=== PATIENT | female | born 1995 | race Caucasian/White ===

== ENCOUNTER → 2016-07-01 | Outpatient (CLI) | payer MEDICAID ==
[~2016-07-01] MED LIST: ANAPROX DS550 MG PO; BIRTH CONTROL PO; CLARITIN10 MG PO; IBU800 MG PO; Motrin,Rufen800 MG PO; PRENATAL1 TA3 PO; ZYRTEC10 M3 PO
== END | disposition home or self-care (01) ==
LOC: US 10:30
DX: Z34.81 Encounter for supervision of other normal pregnancy, first trimester (principal); Z3A.00 Weeks of gestation of pregnancy not specified

== ENCOUNTER 2016-09-10 13:10 | Emergency (ER) | payer MEDICAID ==
[~2016-09-10] VITALS: Ht 154.9 cm; Wt 99.8 kg
== END 2016-09-10 15:22 | disposition left against medical advice (07) ==
LOC: ED 13:10
DX: O46.92 Antepartum hemorrhage, unspecified, second trimester (principal); F17.200 Nicotine dependence, unspecified, uncomplicated; Z88.0 Allergy status to penicillin; Z88.1 Allergy status to other antibiotic agents; Z3A.23 23 weeks gestation of pregnancy

== ENCOUNTER → 2016-11-03 | Emergency (ER) | payer OTHER ==
[~2016-11-03] MED LIST changes: +CEPHALEXIN500 M1 PO; +ZANTAC 7575 M1 PO
[2016-11-03 09:50] LABS: BILIRUBIN NEGATIVE (NEGATIVE); BLOOD NEGATIVE (NEGATIVE); CLARITY SL CLOUDY (CLEAR); COLOR YELLOW (YELLOW); GLUCOSE NEGATIVE (NEGATIVE); KETONE NEGATIVE (NEGATIVE); LEUKO ESTERASE 3+ (NEGATIVE); NITRITE NEGATIVE (NEGATIVE); PROTEIN TRACE (NEGATIVE); SPECIFIC GRAVITY 1.025 (1.005-1.030); UROBILINOGEN 0.2 E.U./dl (0.2-1.0)
[2016-11-03 09:58] LABS: BACTERIA 3+; EPITHELIAL CELLS 21-25; URINE REFLEX COMMENT YES (NO); WBC 31-40 wbc/hpf (0-5)
== END ==
LOC: ED 08:48
PROVIDERS: Emergency Medicine; Student in an Organized Health Care Education/Training Program
DX: O23.591 Infection of other part of genital tract in pregnancy, first trimester (principal); N76.6 Ulceration of vulva; F17.200 Nicotine dependence, unspecified, uncomplicated; Z88.0 Allergy status to penicillin; Z88.1 Allergy status to other antibiotic agents; Z79.899 Other long term (current) drug therapy; Z3A.01 Less than 8 weeks gestation of pregnancy

== ENCOUNTER 2016-11-05 13:34 | Emergency (ER) | payer OTHER ==
[~2016-11-05] VITALS: Ht 154.9 cm; Wt 88.5 kg
[~2016-11-05 13:34] MED LIST changes: -CEPHALEXIN500 M1 PO
[2016-11-05] MEDS ORDERED: CEPHALEXIN500 M1 PO (14:44)
== END 2016-11-05 14:27 | disposition home or self-care (01) ==
LOC: ED 13:34
DX: O26.892 Other specified pregnancy related conditions, second trimester (principal); L03.311 Cellulitis of abdominal wall; Z88.0 Allergy status to penicillin; Z88.1 Allergy status to other antibiotic agents; Z79.899 Other long term (current) drug therapy; Z3A.25 25 weeks gestation of pregnancy

== ENCOUNTER 2017-02-04 17:49 | Emergency (ER) | payer OTHER ==
[~2017-02-04] VITALS: Wt 91.6 kg
[~2017-02-04 17:49] MED LIST changes: +CEPHALEXIN500 M1 PO
[2017-02-04 18:51] LABS: BILIRUBIN NEGATIVE (NEGATIVE); BLOOD NEGATIVE (NEGATIVE); CLARITY CLEAR (CLEAR); COLOR YELLOW (YELLOW); GLUCOSE NEGATIVE (NEGATIVE); KETONE NEGATIVE (NEGATIVE); LEUKO ESTERASE 2+ (NEGATIVE); NITRITE NEGATIVE (NEGATIVE); SPECIFIC GRAVITY <= 1.005 (1.005-1.030); UROBILINOGEN 0.2 E.U./dl (0.2-1.0)
[2017-02-04 19:03] LABS: EPITHELIAL CELLS 20-25; WBC 31-40 wbc/hpf (0-5)
[2017-02-04 19:04] LABS: BACTERIA 2+
== END 2017-02-04 20:32 | disposition short-term general hospital (02) ==
LOC: ED 17:49
PROVIDERS: Emergency Medicine
DX: O26.893 Other specified pregnancy related conditions, third trimester (principal); R10.30 Lower abdominal pain, unspecified; M54.5 Low back pain; Z88.0 Allergy status to penicillin; Z88.1 Allergy status to other antibiotic agents; Z79.899 Other long term (current) drug therapy; Z3A.39 39 weeks gestation of pregnancy

== ENCOUNTER 2017-03-17 10:55 | Emergency (ER) | payer OTHER ==
[~2017-03-17] VITALS: Ht 154.9 cm; Wt 81.6 kg
[2017-03-17 11:24] LABS: BASO # 0.1 10*3/uL (0.0-0.1); BASO % 0.4 % (0.0-1.0); EOS # 0.4 10*3/uL (0.0-0.4); EOS % 3.7 % (1.0-4.0); HEMATOCRIT 34.9 % (37.0-47.0); LYMPH % 16.3 % (27.0-41.0); MEAN CELL VOLUME 77.2 fl (81.0-99.0); MEAN CORPUSCULAR HGB 24.3 pg (27.0-31.0); MEAN CORPUSCULAR HGB CONC 31.5 g/dl (33.0-37.0); MEAN PLATELET VOLUME 10.4 fl (9.6-12.3); MONO # 0.8 10*3/uL (0.1-1.0); MONO % 6.7 % (3.0-9.0); NEUT # 8.7 10*3/uL (2.3-7.9); NEUT % 72.7 % (47.0-73.0); PLATELET COUNT AUTOMATED 501 10*3/uL (130-400); RED BLOOD COUNT 4.52 10*6/uL (4.10-5.10); RED CELL DISTRI WIDTH 15.3 % (0-14.5)
[2017-03-17 11:31] LABS: BILIRUBIN 1+ (NEGATIVE); BLOOD NEGATIVE (NEGATIVE); CLARITY SL CLOUDY (CLEAR); COLOR YELLOW (YELLOW); GLUCOSE NEGATIVE (NEGATIVE); KETONE NEGATIVE (NEGATIVE); LEUKO ESTERASE NEGATIVE (NEGATIVE); NITRITE NEGATIVE (NEGATIVE); PH 7.5 (5.0-9.0); UROBILINOGEN 0.2 E.U./dl (0.2-1.0)
[2017-03-17 11:45] LABS: ALBUMIN 3.4 gm/dl (3.1-4.5); ALKALINE PHOSPHATASE 182 U/L (45-117); BUN 7 mg/dl (7-24); CHLORIDE 110 mmol/L (98-107); CREATININE 0.97 mg/dL (0.55-1.02); LIPASE 180 U/L (73-393); POTASSIUM 4.1 mmol/L (3.5-5.1); SGOT/AST 133 IU/L (3-35); SGPT/ALT 72 U/L (12-78); SODIUM 140 mmol/L (136-145); TOTAL PROTEIN 7.6 gm/dL (6.4-8.2)
[2017-03-17 11:46] LABS: BACTERIA TRACE; EPITHELIAL CELLS 16-20; MUCOUS 2+; WBC 0-2 wbc/hpf (0-5)
[2017-03-17] MEDS ORDERED: CIPRO250 MG PO (13:29)
[2017-03-17] MEDS ORDERED: ULTRAM50 MG PO (13:29)
== END 2017-03-17 14:09 | disposition home or self-care (01) ==
LOC: ED 10:55
PROVIDERS: Nurse Practitioner Family
DX: K80.50 Calculus of bile duct without cholangitis or cholecystitis without obstruction (principal); F17.200 Nicotine dependence, unspecified, uncomplicated; Z88.0 Allergy status to penicillin; Z88.1 Allergy status to other antibiotic agents; Z79.899 Other long term (current) drug therapy

== ENCOUNTER → 2017-04-03 | Day surgery (SDC) | payer OTHER ==
[2017-04-01 11:45] LABS: BILIRUBIN NEGATIVE (NEGATIVE); BLOOD 3+ (NEGATIVE); CLARITY CLEAR (CLEAR); COLOR YELLOW (YELLOW); GLUCOSE NEGATIVE (NEGATIVE); KETONE NEGATIVE (NEGATIVE); LEUKO ESTERASE NEGATIVE (NEGATIVE); NITRITE NEGATIVE (NEGATIVE); PH 6.5 (5.0-9.0); SPECIFIC GRAVITY <= 1.005 (1.005-1.030); UROBILINOGEN 0.2 E.U./dl (0.2-1.0)
[2017-04-01 11:51] LABS: BASO # 0.1 10*3/uL (0.0-0.1); BASO % 0.6 % (0.0-1.0); EOS # 0.7 10*3/uL (0.0-0.4); EOS % 7.2 % (1.0-4.0); HEMATOCRIT 34.1 % (37.0-47.0); HEMOGLOBIN 10.4 g/dl (12.0-16.0); LYMPH # 3.4 10*3/uL (1.3-4.4); MEAN CELL VOLUME 78.9 fl (81.0-99.0); MEAN CORPUSCULAR HGB 24.1 pg (27.0-31.0); MEAN CORPUSCULAR HGB CONC 30.5 g/dl (33.0-37.0); MEAN PLATELET VOLUME 10.3 fl (9.6-12.3); MONO # 0.5 10*3/uL (0.1-1.0); MONO % 5.7 % (3.0-9.0); NEUT # 4.5 10*3/uL (2.3-7.9); NEUT % 49.3 % (47.0-73.0); PLATELET COUNT AUTOMATED 509 10*3/uL (130-400); RED BLOOD COUNT 4.32 10*6/uL (4.10-5.10); RED CELL DISTRI WIDTH 16.7 % (0-14.5); WHITE BLOOD COUNT 9.1 10*3/uL (4.8-10.8)
[2017-04-01 12:20] LABS: ALBUMIN 3.3 gm/dl (3.1-4.5); ALKALINE PHOSPHATASE 189 U/L (45-117); BILIRUBIN, DIRECT < 0.1 mg/dL (0.0-0.2); BUN 6 mg/dl (7-24); CHLORIDE 107 mmol/L (98-107); CREATININE 0.85 mg/dL (0.55-1.02); POTASSIUM 3.9 mmol/L (3.5-5.1); SGOT/AST 20 IU/L (3-35); SGPT/ALT 74 U/L (12-78); SODIUM 140 mmol/L (136-145); TOTAL PROTEIN 7.6 gm/dL (6.4-8.2)
[2017-04-03] VITALS (8 sets, daily range): BP systolic 116–128; BP diastolic 54–71
[~2017-04-03] MED LIST changes: +CIPRO250 MG PO; +PERCOCET 5-3251 EACH PO; +ULTRAM50 MG PO
--- NOTE | ~2017-04-03 | O ---
[place], [place] OPERATIVE NOTE NAME: MINH VARGAS MERGED WITH [facility] #: [id number] UNIT #: [id number] ROOM: DOCTOR: JORDY JARVIS MD BIRTHDATE: [birth year] DOS: 04/03/2017 PREOPERATIVE DIAGNOSIS: Symptomatic gallstones. POSTOPERATIVE DIAGNOSIS: Symptomatic gallstones. PROCEDURE: Laparoscopic cholecystectomy. SURGEON: Jordy Jarvis MD OUTPATIENT PSYCHIATRIST: YULISA. ANESTHESIA: GET. INDICATIONS: This is a 21-year-old lady with a history of symptomatic gallstones, who is here for the above-mentioned procedure. The procedure and its complications were explained to the patient in detail preoperatively. Complications that were discussed included but were not limited to bleeding, infection, hematoma/seroma/abscess formation, biloma formation, incisional hernia, prolonged postoperative pain, and damage to underlying vital structures. She agreed to proceed. DESCRIPTION OF PROCEDURE: After identifying the patient, the patient was brought to the operating suite and laid in the supine position. After induction of general anesthesia, timeout procedure was called and the parts were then painted and draped in the usual sterile fashion. An incision was made below the umbilicus in a transverse fashion. The skin and the subcutaneous tissue were incised in the line of the incision. The fascia was incised vertically and 2 stay sutures with 0 Vicryl were taken on either site. The peritoneum was opened and a 12 mm Amado port was introduced into the peritoneal cavity and a pneumoperitoneum was created. Under direct vision, an epigastric incision of 10 mm and two 5 mm incisions were made in the right upper quadrant and appropriate size ports were introduced. The gallbladder was retracted superiorly and laterally. The cystic duct and the cystic artery were carefully dissected until the critical view of safety was obtained. Thereafter, each of these structures were clipped 3 times and cut between the first and the second clip. The gallbladder was then removed from the bed of the gallbladder and sent for histopathological diagnosis after being placed in an EndoCatch bag. Hemostasis was achieved in the liver bed and saline was used for irrigation and after hemostasis was confirmed, the right upper quadrant and the epigastric ports were removed and there was no bleeding seen. The umbilical port was also removed and the 2 stay sutures were tied together and an additional 0 Vicryl stitch was taken for the closure of the fascia. Thereafter, 1% lidocaine was injected in all the skin edges and they were then approximated with the help of 4-0 Vicryl in a subcuticular fashion. Dressings were placed. The patient tolerated the procedure well. The patient was extubated uneventfully and brought back to the recovery room in stable fashion. There were no complications. Dr. Jordy Jarvis, the attending surgeon, was present throughout the operating case. [place], [place] OPERATIVE NOTE NAME: MINH VARGAS UNIT #: [id number] ROOM: DOCTOR: JORDY JARVIS MD BIRTHDATE: [birth year] Jordy Jarvis MD CM:OPRECORD:OPERATIVE NOTE 1003 1022 JORDY JARVIS MD 04/03/17 1020 interface
== END | disposition home or self-care (01) ==
LOC: SDC 03-27 08:45
PROVIDERS: Surgery
DX: K80.10 Calculus of gallbladder with chronic cholecystitis without obstruction (principal); F17.210 Nicotine dependence, cigarettes, uncomplicated; Z88.0 Allergy status to penicillin; Z88.1 Allergy status to other antibiotic agents; Z98.890 Other specified postprocedural states

== ENCOUNTER 2017-05-05 14:40 | Emergency (ER) | payer OTHER ==
[~2017-05-05] VITALS: Ht 157.4 cm; Wt 81.6 kg
[2017-05-05 15:18] LABS: BASO % 0.4 % (0.0-1.0); EOS # 0.1 10*3/uL (0.0-0.4); EOS % 1.3 % (1.0-4.0); HEMATOCRIT 36.9 % (37.0-47.0); HEMOGLOBIN 11.3 g/dl (12.0-16.0); LYMPH # 1.7 10*3/uL (1.3-4.4); LYMPH % 20.1 % (27.0-41.0); MEAN CELL VOLUME 75.5 fl (81.0-99.0); MEAN CORPUSCULAR HGB 23.1 pg (27.0-31.0); MEAN CORPUSCULAR HGB CONC 30.6 g/dl (33.0-37.0); MEAN PLATELET VOLUME 10.9 fl (9.6-12.3); MONO # 0.7 10*3/uL (0.1-1.0); MONO % 8.7 % (3.0-9.0); NEUT # 5.8 10*3/uL (2.3-7.9); NEUT % 69.1 % (47.0-73.0); PLATELET COUNT AUTOMATED 397 10*3/uL (130-400); RED BLOOD COUNT 4.89 10*6/uL (4.10-5.10); RED CELL DISTRI WIDTH 17.1 % (0-14.5); WHITE BLOOD COUNT 8.4 10*3/uL (4.8-10.8)
[2017-05-05 15:30] LABS: BILIRUBIN NEGATIVE (NEGATIVE); BLOOD NEGATIVE (NEGATIVE); CLARITY SL CLOUDY (CLEAR); COLOR YELLOW (YELLOW); GLUCOSE NEGATIVE (NEGATIVE); KETONE TRACE (NEGATIVE); LEUKO ESTERASE NEGATIVE (NEGATIVE); NITRITE NEGATIVE (NEGATIVE); SPECIFIC GRAVITY 1.015 (1.005-1.030); UROBILINOGEN 0.2 E.U./dl (0.2-1.0)
[2017-05-05 15:33] LABS: ALBUMIN 3.6 gm/dl (3.1-4.5); ALKALINE PHOSPHATASE 108 U/L (45-117); BUN 6 mg/dl (7-24); CHLORIDE 107 mmol/L (98-107); CREATININE 0.91 mg/dL (0.55-1.02); LIPASE 100 U/L (73-393); POTASSIUM 3.6 mmol/L (3.5-5.1); SGOT/AST 28 IU/L (3-35); SGPT/ALT 57 U/L (12-78); SODIUM 139 mmol/L (136-145)
[2017-05-05 15:42] LABS: TOTAL PROTEIN 7.7 gm/dL (6.4-8.2)
[2017-05-05 15:53] LABS: BACTERIA TRACE; EPITHELIAL CELLS 41-50
[2017-05-05 15:54] LABS: RBC 0-2 rbc/hpf (0-2)
[2017-05-05] MEDS ORDERED: ZOFRAN ODT4 MG SL (16:33)
== END 2017-05-05 16:38 | disposition home or self-care (01) ==
LOC: ED 14:40
PROVIDERS: Physician Assistant
DX: K52.9 Noninfective gastroenteritis and colitis, unspecified (principal); F17.200 Nicotine dependence, unspecified, uncomplicated; F10.10 Alcohol abuse, uncomplicated; Z88.1 Allergy status to other antibiotic agents; Z88.0 Allergy status to penicillin; Z79.899 Other long term (current) drug therapy

== ENCOUNTER 2017-05-31 21:58 | Emergency (ER) | payer OTHER ==
[~2017-05-31] VITALS: Ht 154.9 cm; Wt 83.0 kg
[~2017-05-31 21:58] MED LIST changes: +ZOFRAN ODT4 MG SL
[2017-05-31 22:45] LABS: BASO # 0.1 10*3/uL (0.0-0.1); BASO % 0.8 % (0.0-1.0); EOS # 0.7 10*3/uL (0.0-0.4); EOS % 5.9 % (1.0-4.0); HEMATOCRIT 37.6 % (37.0-47.0); HEMOGLOBIN 11.6 g/dl (12.0-16.0); LYMPH # 3.8 10*3/uL (1.3-4.4); LYMPH % 33.5 % (27.0-41.0); MEAN CELL VOLUME 74.5 fl (81.0-99.0); MEAN CORPUSCULAR HGB CONC 30.9 g/dl (33.0-37.0); MEAN PLATELET VOLUME 10.4 fl (9.6-12.3); MONO # 0.8 10*3/uL (0.1-1.0); MONO % 6.9 % (3.0-9.0); NEUT % 52.7 % (47.0-73.0); PLATELET COUNT AUTOMATED 472 10*3/uL (130-400); RED BLOOD COUNT 5.05 10*6/uL (4.10-5.10); RED CELL DISTRI WIDTH 17.2 % (0-14.5); WHITE BLOOD COUNT 11.3 10*3/uL (4.8-10.8)
[2017-05-31 23:00] LABS: ALBUMIN 3.8 gm/dl (3.1-4.5); ALKALINE PHOSPHATASE 106 U/L (45-117); BUN 6 mg/dl (7-24); CHLORIDE 110 mmol/L (98-107); CREATININE 0.96 mg/dL (0.55-1.02); SGOT/AST 29 IU/L (3-35); SGPT/ALT 40 U/L (12-78); SODIUM 142 mmol/L (136-145); TOTAL PROTEIN 7.8 gm/dL (6.4-8.2)
[2017-05-31 23:02] LABS: ACETAMINOPHEN (TYLENOL) < 2.0 ug/ml (10-30); ETHYL ALCOHOL < 3.0 mg/dl (<3)
[2017-06-01 00:15] LABS: BILIRUBIN NEGATIVE (NEGATIVE); BLOOD NEGATIVE (NEGATIVE); CLARITY CLEAR (CLEAR); COLOR YELLOW (YELLOW); GLUCOSE NEGATIVE (NEGATIVE); KETONE NEGATIVE (NEGATIVE); LEUKO ESTERASE NEGATIVE (NEGATIVE); NITRITE NEGATIVE (NEGATIVE); PH 5.5 (5.0-9.0); SPECIFIC GRAVITY <= 1.005 (1.005-1.030); UROBILINOGEN 0.2 E.U./dl (0.2-1.0)
[2017-06-01 00:25] LABS: URINE AMPHETAMINES < 1000 (1000ng/ml); URINE BARBITURATES > 200 (200ng/ml); URINE BENZODIAZEPINES < 200 (200ng/ml); URINE CANNABINOIDS (THC) > 50 (50ng/ml); URINE COCAINE > 300 (300ng/ml); URINE METHADONE < 300 (300ng/ml); URINE OPIATES < 300 (300ng/ml)
[2017-06-01 00:26] LABS: BACTERIA 1+; EPITHELIAL CELLS 15-20; WBC 0-2 wbc/hpf (0-5)
[2017-06-01 00:28] LABS: URINE PHENCYCLIDINE < 25 (25ng/ml)
== END 2017-06-01 01:15 | disposition home or self-care (01) ==
LOC: ED 21:58
PROVIDERS: Student in an Organized Health Care Education/Training Program
DX: F32.9 Major depressive disorder, single episode, unspecified (principal); F17.200 Nicotine dependence, unspecified, uncomplicated; F10.10 Alcohol abuse, uncomplicated; Z88.1 Allergy status to other antibiotic agents; Z88.0 Allergy status to penicillin; Z79.899 Other long term (current) drug therapy

== ENCOUNTER 2017-09-08 22:09 | Emergency (ER) | payer OTHER ==
[~2017-09-08] VITALS: Ht 154.9 cm
== END 2017-09-08 23:54 | disposition home or self-care (01) ==
LOC: ED 22:09
DX: M25.572 Pain in left ankle and joints of left foot (principal); Z98.890 Other specified postprocedural states; Z79.899 Other long term (current) drug therapy; Z88.0 Allergy status to penicillin; Z88.1 Allergy status to other antibiotic agents; W19.XXXA Unspecified fall, initial encounter; Y93.89 Activity, other specified; Y92.89 Other specified places as the place of occurrence of the external cause; Y99.9 Unspecified external cause status

== ENCOUNTER 2017-11-10 15:23 | Emergency (ER) | payer OTHER ==
[~2017-11-10] VITALS: Ht 165.1 cm; Wt 81.6 kg
[2017-11-10 15:43] LABS: BILIRUBIN NEGATIVE (NEGATIVE); BLOOD NEGATIVE (NEGATIVE); CLARITY SL CLOUDY (CLEAR); COLOR YELLOW (YELLOW); GLUCOSE NEGATIVE (NEGATIVE); KETONE TRACE (NEGATIVE); LEUKO ESTERASE 1+ (NEGATIVE); NITRITE NEGATIVE (NEGATIVE); UROBILINOGEN 0.2 E.U./dl (0.2-1.0)
[2017-11-10 15:51] LABS: BASO # 0.1 10*3/uL (0.0-0.1); BASO % 0.7 % (0.0-1.0); EOS # 0.3 10*3/uL (0.0-0.4); EOS % 3.4 % (1.0-4.0); HEMOGLOBIN 10.3 g/dl (12.0-16.0); MEAN CELL VOLUME 73.1 fl (81.0-99.0); MEAN CORPUSCULAR HGB 22.2 pg (27.0-31.0); MEAN CORPUSCULAR HGB CONC 30.3 g/dl (33.0-37.0); MEAN PLATELET VOLUME 10.3 fl (9.6-12.3); MONO # 0.7 10*3/uL (0.1-1.0); MONO % 7.7 % (3.0-9.0); NEUT # 5.4 10*3/uL (2.3-7.9); PLATELET COUNT AUTOMATED 392 10*3/uL (130-400); RED BLOOD COUNT 4.65 10*6/uL (4.10-5.10); RED CELL DISTRI WIDTH 19.8 % (0-14.5); WHITE BLOOD COUNT 8.5 10*3/uL (4.8-10.8)
[2017-11-10 15:54] LABS: BACTERIA 4+
[2017-11-10 15:55] LABS: EPITHELIAL CELLS 21-30; URINE AMPHETAMINES < 1000 (1000ng/ml); URINE BARBITURATES < 200 (200ng/ml); URINE BENZODIAZEPINES > 200 (200ng/ml); URINE CANNABINOIDS (THC) > 50 (50ng/ml); URINE COCAINE > 300 (300ng/ml); URINE METHADONE < 300 (300ng/ml); URINE OPIATES < 300 (300ng/ml)
[2017-11-10 15:56] LABS: URINE PHENCYCLIDINE < 25 (25ng/ml)
[2017-11-10 16:08] LABS: ALBUMIN 3.9 gm/dl (3.1-4.5); ALKALINE PHOSPHATASE 102 U/L (45-117); BUN 8 mg/dl (7-24); CHLORIDE 108 mmol/L (98-107); CREATININE 0.85 mg/dL (0.55-1.02); POTASSIUM 4.1 mmol/L (3.5-5.1); SGOT/AST 12 IU/L (3-35); SGPT/ALT 31 U/L (12-78); SODIUM 140 mmol/L (136-145); TOTAL PROTEIN 7.7 gm/dL (6.4-8.2)
[2017-11-10 16:16] LABS: ETHYL ALCOHOL < 3.0 mg/dl (<3)
== END 2017-11-11 14:01 | disposition home or self-care (01) ==
LOC: ED 15:23
PROVIDERS: Emergency Medicine
DX: F32.9 Major depressive disorder, single episode, unspecified (principal); R45.851 Suicidal ideations; F19.10 Other psychoactive substance abuse, uncomplicated; F43.21 Adjustment disorder with depressed mood

== ENCOUNTER 2018-05-01 17:08 | Emergency (ER) | payer SELFPAY ==
[~2018-05-01] VITALS: Ht 154.9 cm; Wt 72.6 kg
[2018-05-01] MEDS ORDERED: HYDROXYZINE PAM25 M1 PO (17:10)
[2018-05-01] MEDS ORDERED: LAMOTRIGINE100 MG PO (17:11)
[2018-05-01] MEDS ORDERED: SERTRALINE HYD100 MG PO (17:11)
[2018-05-01] MEDS ORDERED: DOXEPIN HCL25 MG PO (17:11)
[2018-05-01] MEDS ORDERED: ZOFRAN4 MG PO (17:16)
[2018-05-01] MEDS ORDERED: NAPROSYN500 MG PO (17:16)
[2018-05-01] MEDS ORDERED: CLINDAMYCIN150 MG PO (17:16)
== END 2018-05-01 17:25 | disposition home or self-care (01) ==
LOC: ED 17:08
DX: K08.89 Other specified disorders of teeth and supporting structures (principal); R03.0 Elevated blood-pressure reading, without diagnosis of hypertension; Z88.0 Allergy status to penicillin; Z88.1 Allergy status to other antibiotic agents; Z79.899 Other long term (current) drug therapy

== ENCOUNTER 2018-05-18 08:28 | Emergency (ER) | payer OTHER ==
[~2018-05-18] VITALS: Ht 152.4 cm; Wt 72.6 kg
[~2018-05-18 08:28] MED LIST changes: +CLINDAMYCIN150 MG PO; +DOXEPIN HCL25 MG PO; +HYDROXYZINE PAM25 M1 PO; +LAMOTRIGINE100 MG PO; +NAPROSYN500 MG PO; +SERTRALINE HYD100 MG PO; +ZOFRAN4 MG PO
[2018-05-18] MEDS ORDERED: CLINDAMYCIN150 MG PO (09:14)
[2018-05-18] MEDS ORDERED: EC NAPROSYN500 MG PO (09:14)
== END 2018-05-18 09:30 | disposition home or self-care (01) ==
LOC: ED 08:28
DX: S39.012A Strain of muscle, fascia and tendon of lower back, initial encounter (principal); K02.9 Dental caries, unspecified; F17.200 Nicotine dependence, unspecified, uncomplicated; Z88.0 Allergy status to penicillin; Z88.1 Allergy status to other antibiotic agents; X58.XXXA Exposure to other specified factors, initial encounter; Y93.89 Activity, other specified; Y92.89 Other specified places as the place of occurrence of the external cause; Y99.8 Other external cause status

== ENCOUNTER 2018-07-01 14:55 | Emergency (ER) | payer OTHER ==
[~2018-07-01] VITALS: Ht 157.4 cm; Wt 74.8 kg
[~2018-07-01 14:55] MED LIST changes: +EC NAPROSYN500 MG PO
== END 2018-07-01 16:14 | disposition home or self-care (01) ==
LOC: ED 14:55
DX: Z32.02 Encounter for pregnancy test, result negative (principal); F17.200 Nicotine dependence, unspecified, uncomplicated; Z88.1 Allergy status to other antibiotic agents; Z88.0 Allergy status to penicillin

== ENCOUNTER 2018-07-16 15:26 | Emergency (ER) | payer OTHER ==
[~2018-07-16] VITALS: Ht 157.4 cm; Wt 72.6 kg
[2018-07-16] MEDS ORDERED: Motrin,Rufen800 MG PO (17:33)
[2018-07-16] MEDS ORDERED: CYCLOBENZAPRINE5 M3 PO (17:33)
[2018-07-16] MEDS ORDERED: MEDROL DOSEPAK4 MG PO (17:33)
== END 2018-07-16 17:45 | disposition home or self-care (01) ==
LOC: ED 15:26
DX: M54.16 Radiculopathy, lumbar region (principal); R20.0 Anesthesia of skin; R20.2 Paresthesia of skin; Z88.0 Allergy status to penicillin; Z88.1 Allergy status to other antibiotic agents

== ENCOUNTER 2018-09-16 10:56 | Emergency (ER) | payer OTHER ==
[~2018-09-16] VITALS: Ht 157.4 cm; Wt 79.4 kg
[~2018-09-16 10:56] MED LIST changes: +CYCLOBENZAPRINE5 M3 PO; +MEDROL DOSEPAK4 MG PO
[2018-09-16] MEDS ORDERED: CEPHALEXIN500 M1 PO (11:38)
[2018-09-16] MEDS ORDERED: IBU800 MG PO (11:38)
[2018-09-16] MEDS ORDERED: SEPTDS PO (11:38)
== END 2018-09-16 12:02 | disposition home or self-care (01) ==
LOC: ED 10:56
DX: N76.4 Abscess of vulva (principal); F17.200 Nicotine dependence, unspecified, uncomplicated; Z88.0 Allergy status to penicillin; Z88.1 Allergy status to other antibiotic agents; Z79.899 Other long term (current) drug therapy; Z79.2 Long term (current) use of antibiotics

== ENCOUNTER 2018-12-16 13:38 | Emergency (ER) | payer OTHER ==
[~2018-12-16] VITALS: Ht 154.9 cm; Wt 77.1 kg
[~2018-12-16 13:38] MED LIST changes: +SEPTDS PO
[2018-12-16 14:14] LABS: BILIRUBIN NEGATIVE (NEGATIVE); BLOOD NEGATIVE (NEGATIVE); CLARITY SL CLOUDY (CLEAR); COLOR YELLOW (YELLOW); GLUCOSE NEGATIVE (NEGATIVE); KETONE NEGATIVE (NEGATIVE); LEUKO ESTERASE NEGATIVE (NEGATIVE); NITRITE NEGATIVE (NEGATIVE); SPECIFIC GRAVITY 1.025 (1.005-1.030); UROBILINOGEN 0.2 E.U./dl (0.2-1.0)
[2018-12-16 14:28] LABS: MUCOUS 3+
[2018-12-16 14:29] LABS: BACTERIA 1+
[2018-12-16] MEDS ORDERED: MACROBID100 M1 PO (14:37)
== END 2018-12-16 14:51 | disposition home or self-care (01) ==
LOC: ED 13:38
PROVIDERS: Physician Assistant
DX: O23.41 Unspecified infection of urinary tract in pregnancy, first trimester (principal); Z3A.01 Less than 8 weeks gestation of pregnancy; B96.89 Other specified bacterial agents as the cause of diseases classified elsewhere; Z88.0 Allergy status to penicillin; Z88.1 Allergy status to other antibiotic agents

== ENCOUNTER → 2019-01-13 | Outpatient (CLI) | payer OTHER ==
[~2019-01-13] MED LIST changes: +MACROBID100 M1 PO
== END | disposition home or self-care (01) ==
LOC: US 16:55
DX: Z34.91 Encounter for supervision of normal pregnancy, unspecified, first trimester (principal); Z3A.01 Less than 8 weeks gestation of pregnancy

== ENCOUNTER 2019-02-10 17:11 | Emergency (ER) | payer OTHER ==
[~2019-02-10] VITALS: Ht 154.9 cm; Wt 74.4 kg
[2019-02-10] MEDS ORDERED: ZITHROMAX500 MG PO (18:07)
== END 2019-02-10 18:40 | disposition home or self-care (01) ==
LOC: ED 17:11
DX: O99.611 Diseases of the digestive system complicating pregnancy, first trimester (principal); K04.7 Periapical abscess without sinus; O99.331 Smoking (tobacco) complicating pregnancy, first trimester; Z3A.12 12 weeks gestation of pregnancy; Z88.0 Allergy status to penicillin; Z88.1 Allergy status to other antibiotic agents; Z79.2 Long term (current) use of antibiotics

== ENCOUNTER → 2019-02-24 | Outpatient (CLI) | payer OTHER ==
[~2019-02-24] MED LIST changes: +CLINDAMYCIN HC300 MG PO; +ZITHROMAX500 MG PO
[2019-02-24 12:27] LABS: BASO % 0.3 % (0.0-1.0); EOS # 0.4 10*3/uL (0.0-0.4); EOS % 4.2 % (1.0-4.0); HEMATOCRIT 34.6 % (37.0-47.0); HEMOGLOBIN 11.1 g/dl (12.0-16.0); LYMPH % 23.2 % (27.0-41.0); MEAN CELL VOLUME 77.1 fl (81.0-99.0); MEAN CORPUSCULAR HGB 24.7 pg (27.0-31.0); MEAN CORPUSCULAR HGB CONC 32.1 g/dl (33.0-37.0); MEAN PLATELET VOLUME 11.2 fl (9.6-12.3); MONO # 0.6 10*3/uL (0.1-1.0); MONO % 6.3 % (3.0-9.0); NEUT # 5.7 10*3/uL (2.3-7.9); NEUT % 65.8 % (47.0-73.0); PLATELET COUNT AUTOMATED 318 10*3/uL (130-400); RED BLOOD COUNT 4.49 10*6/uL (4.10-5.10); RED CELL DISTRI WIDTH 19.4 % (0-14.5); WHITE BLOOD COUNT 8.7 10*3/uL (4.8-10.8)
[2019-02-24 12:56] LABS: IRON 131 ug/dL (50-170); TOTAL IRON BINDING CAPACITY 436 ug/dl (250-450)
[2019-02-24 13:16] LABS: TOTAL CELLS COUNTED 100 #CELLS
[2019-02-24 13:17] LABS: ACANTHOCYTES FEW; MICROCYTOSIS SLIGHT; OVALOCYTES FEW; PLATELET SUFFICIENCY NORMAL (NORMAL)
== END | disposition home or self-care (01) ==
LOC: LAB 11:54
PROVIDERS: Obstetrics & Gynecology
DX: Z34.91 Encounter for supervision of normal pregnancy, unspecified, first trimester (principal); Z3A.01 Less than 8 weeks gestation of pregnancy

== ENCOUNTER → 2019-03-01 | Outpatient (CLI) | payer OTHER ==
[~2019-03-01] MED LIST changes: -CLINDAMYCIN HC300 MG PO
[2019-03-01 12:45] LABS: ALBUMIN 3.3 gm/dl (3.1-4.5); ALKALINE PHOSPHATASE 73 U/L (45-117); BUN 5 mg/dl (7-24); CHLORIDE 107 mmol/L (98-107); POTASSIUM 3.9 mmol/L (3.5-5.1); SGOT/AST 17 IU/L (3-35); SGPT/ALT 24 U/L (12-78); SODIUM 138 mmol/L (136-145); TOTAL PROTEIN 7.2 gm/dL (6.4-8.2)
== END | disposition home or self-care (01) ==
LOC: LAB 11:55
PROVIDERS: Nurse Practitioner Women's Health
DX: D64.9 Anemia, unspecified (principal)

== ENCOUNTER → 2019-03-15 | Outpatient (CLI) | payer OTHER ==
[~2019-03-15] MED LIST changes: +CLINDAMYCIN HC300 MG PO
== END | disposition home or self-care (01) ==
LOC: US 11:00
DX: Z34.91 Encounter for supervision of normal pregnancy, unspecified, first trimester (principal); Z3A.17 17 weeks gestation of pregnancy

== ENCOUNTER 2019-03-24 04:47 | Emergency (ER) | payer OTHER ==
[~2019-03-24] VITALS: Ht 152.4 cm; Wt 72.6 kg
[~2019-03-24 04:47] MED LIST changes: -CLINDAMYCIN HC300 MG PO
[2019-03-24] MEDS ORDERED: CLINDAMYCIN HC300 MG PO (05:22)
== END 2019-03-24 05:30 | disposition home or self-care (01) ==
LOC: ED 04:47
DX: O99.612 Diseases of the digestive system complicating pregnancy, second trimester (principal); K04.7 Periapical abscess without sinus; Z88.0 Allergy status to penicillin; Z88.1 Allergy status to other antibiotic agents; Z79.899 Other long term (current) drug therapy; Z3A.18 18 weeks gestation of pregnancy

== ENCOUNTER → 2019-04-15 | Outpatient (CLI) | payer OTHER ==
[~2019-04-15] MED LIST changes: +CLINDAMYCIN HC300 MG PO
== END | disposition home or self-care (01) ==
LOC: US 12:54
DX: Z34.82 Encounter for supervision of other normal pregnancy, second trimester (principal); Z3A.21 21 weeks gestation of pregnancy

== ENCOUNTER → 2019-06-08 | Outpatient (CLI) | payer OTHER ==
[2019-06-08 16:41] LABS: URINE AMPHETAMINES < 1000 (1000ng/ml); URINE BARBITURATES < 200 (200ng/ml); URINE BENZODIAZEPINES < 200 (200ng/ml); URINE CANNABINOIDS (THC) < 50 (50ng/ml); URINE COCAINE < 300 (300ng/ml); URINE METHADONE < 300 (300ng/ml); URINE OPIATES < 300 (300ng/ml)
[2019-06-08 16:49] LABS: URINE PHENCYCLIDINE < 25 (25ng/ml)
[2019-06-09 04:04] LABS: HEPATITIS B SURFACE AG Negative (Negative); HEPATITIS C VIRUS ANTIBODY <0.1 s/co (0.0-0.9)
== END ==
LOC: LAB 09:00 → US 16:00
PROVIDERS: Obstetrics & Gynecology
DX: Z34.82 Encounter for supervision of other normal pregnancy, second trimester (principal); Z3A.27 27 weeks gestation of pregnancy

== ENCOUNTER → 2019-06-11 | Outpatient (CLI) | payer OTHER | END | disposition home or self-care (01) | LOC: US 01:44 | DX: Z34.83 Encounter for supervision of other normal pregnancy, third trimester (principal); Z3A.29 29 weeks gestation of pregnancy ==

== ENCOUNTER → 2020-03-07 | Outpatient (CLI) | payer OTHER | END | disposition home or self-care (01) | LOC: CARD 10:18 | PROVIDERS: ATTEND Nurse Practitioner Family | DX: F41.1 Generalized anxiety disorder (principal) ==

== ENCOUNTER 2020-03-25 10:26 | Emergency (ER) | payer OTHER ==
[~2020-03-25] VITALS: Ht 157.4 cm; Wt 81.6 kg
[2020-03-25] MEDS ORDERED: CEPHALEXIN500 M1 PO (10:47)
[2020-03-25] MEDS ORDERED: Bactroban Oint22 GM T (10:47)
[2020-03-25] MEDS ORDERED: IBU800 MG PO (10:47)
== END 2020-03-25 10:46 | disposition home or self-care (01) ==
LOC: ED 10:26
DX: T23.012A Burn of unspecified degree of left thumb (nail), initial encounter (principal); Z88.8 Allergy status to other drugs, medicaments and biological substances; Z88.0 Allergy status to penicillin; Z79.899 Other long term (current) drug therapy; X08.8XXA Exposure to other specified smoke, fire and flames, initial encounter; Y93.89 Activity, other specified; Y92.89 Other specified places as the place of occurrence of the external cause; Y99.8 Other external cause status

== ENCOUNTER → 2020-07-20 | Outpatient (CLI) | payer OTHER ==
[~2020-07-20] MED LIST changes: +Bactroban Oint22 GM T; +PREDNISONE10 MG PO
== END | disposition home or self-care (01) ==
LOC: COVID19 13:54
PROVIDERS: ATTEND Family Medicine
DX: R50.9 Fever, unspecified (principal); Z20.822 Contact with and (suspected) exposure to COVID-19

== ENCOUNTER 2020-08-21 12:06 | Emergency (ER) | payer OTHER ==
[~2020-08-21] VITALS: Wt 79.4 kg
[~2020-08-21 12:06] MED LIST changes: -PREDNISONE10 MG PO
[2020-08-21] MEDS ORDERED: Motrin,Rufen800 MG PO (14:54)
[2020-08-21] MEDS ORDERED: PREDNISONE10 MG PO (14:54)
[2020-08-21] MEDS ORDERED: CYCLOBENZAPRINE5 M3 PO (14:54)
== END 2020-08-21 15:17 | disposition home or self-care (01) ==
LOC: ED 12:06
DX: M54.42 Lumbago with sciatica, left side (principal); M54.41 Lumbago with sciatica, right side; Z88.0 Allergy status to penicillin; Z88.1 Allergy status to other antibiotic agents; Z79.2 Long term (current) use of antibiotics; Z79.899 Other long term (current) drug therapy

== ENCOUNTER 2020-10-13 18:13 | Emergency (ER) | payer OTHER ==
[~2020-10-13] VITALS: Ht 157.4 cm; Wt 81.6 kg
[~2020-10-13 18:13] MED LIST changes: +PREDNISONE10 MG PO
[2020-10-13 19:26] LABS: BASO % 0.3 % (0.0-1.0); EOS # 0.6 10*3/uL (0.0-0.4); EOS % 4.6 % (1.0-4.0); HEMATOCRIT 38.8 % (37.0-47.0); LYMPH # 1.7 10*3/uL (1.3-4.4); LYMPH % 13.7 % (27.0-41.0); MEAN CELL VOLUME 80.3 fl (81.0-99.0); MEAN CORPUSCULAR HGB 25.1 pg (27.0-31.0); MEAN CORPUSCULAR HGB CONC 31.2 g/dl (33.0-37.0); MEAN PLATELET VOLUME 10.6 fl (9.6-12.3); MONO # 0.8 10*3/uL (0.1-1.0); MONO % 6.7 % (3.0-9.0); NEUT # 9.2 10*3/uL (2.3-7.9); NEUT % 74.5 % (47.0-73.0); PLATELET COUNT AUTOMATED 378 10*3/uL (130-400); RED BLOOD COUNT 4.83 10*6/uL (4.10-5.10); RED CELL DISTRI WIDTH 18.3 % (0-14.5); WHITE BLOOD COUNT 12.3 10*3/uL (4.8-10.8)
[2020-10-13 19:51] LABS: BILIRUBIN Negative (Negative); BLOOD Negative (Negative); CLARITY Clear (Clear); COLOR Yellow (Yellow); GLUCOSE Negative (Negative); KETONE Negative (Negative); LEUKO ESTERASE Negative (Negative); NITRITE Negative (Negative); UROBILINOGEN 0.2 E.U./dl (0.0-1.0)
[2020-10-13 19:51] LABS: ALBUMIN 3.8 gm/dl (3.1-4.5); ALKALINE PHOSPHATASE 82 U/L (45-117); BUN 11 mg/dl (7-24); CHLORIDE 109 mmol/L (98-107); CREATININE 0.77 mg/dL (0.55-1.02); LIPASE 233 U/L (73-393); SGOT/AST 7 IU/L (3-35); SGPT/ALT 17 U/L (12-78); SODIUM 141 mmol/L (136-145); TOTAL PROTEIN 7.4 gm/dL (6.4-8.2)
[2020-10-13 20:25] LABS: EPITHELIAL CELLS 21-30; MUCOUS TRACE; RBC 0-2 rbc/hpf (0-2); WBC 0-2 wbc/hpf (0-5)
[2020-10-14] MEDS ORDERED: ZOFRAN4 MG PO (00:15)
== END 2020-10-14 00:49 | disposition home or self-care (01) ==
LOC: ED 18:13
PROVIDERS: Physician Assistant
DX: K52.9 Noninfective gastroenteritis and colitis, unspecified (principal); F17.200 Nicotine dependence, unspecified, uncomplicated; Z88.8 Allergy status to other drugs, medicaments and biological substances; Z79.899 Other long term (current) drug therapy

== ENCOUNTER → 2020-11-20 | Outpatient (CLI) | payer OTHER | END | disposition home or self-care (01) | LOC: US 04:45 | PROVIDERS: ATTEND Nurse Practitioner Women's Health | DX: N83.201 Unspecified ovarian cyst, right side (principal); N85.8 Other specified noninflammatory disorders of uterus; Z97.5 Presence of (intrauterine) contraceptive device ==

== ENCOUNTER → 2020-11-22 | Outpatient (CLI) | payer OTHER ==
[2020-11-22 10:12] LABS: BASO # 0.1 10*3/uL (0.0-0.1); BASO % 1.1 % (0.0-1.0); EOS # 0.9 10*3/uL (0.0-0.4); EOS % 9.7 % (1.0-4.0); HEMATOCRIT 39.3 % (37.0-47.0); LYMPH # 3.8 10*3/uL (1.3-4.4); LYMPH % 42.7 % (27.0-41.0); MEAN CELL VOLUME 81.9 fl (81.0-99.0); MEAN CORPUSCULAR HGB 25.2 pg (27.0-31.0); MEAN CORPUSCULAR HGB CONC 30.8 g/dl (33.0-37.0); MEAN PLATELET VOLUME 10.4 fl (9.6-12.3); MONO # 0.7 10*3/uL (0.1-1.0); MONO % 8.1 % (3.0-9.0); NEUT # 3.4 10*3/uL (2.3-7.9); NEUT % 38.2 % (47.0-73.0); PLATELET COUNT AUTOMATED 383 10*3/uL (130-400); RED CELL DISTRI WIDTH 17.7 % (0-14.5)
[2020-11-22 10:40] LABS: ALBUMIN 3.8 gm/dl (3.1-4.5); ALKALINE PHOSPHATASE 88 U/L (45-117); BUN 10 mg/dl (7-24); CHLORIDE 109 mmol/L (98-107); CREATININE 0.75 mg/dL (0.55-1.02); SGOT/AST 7 IU/L (3-35); SGPT/ALT 14 U/L (12-78); SODIUM 140 mmol/L (136-145); TOTAL PROTEIN 7.7 gm/dL (6.4-8.2)
== END | disposition home or self-care (01) ==
LOC: LAB 09:27 → US 09:30
PROVIDERS: Student in an Organized Health Care Education/Training Program; ATTEND Family Medicine
DX: R10.9 Unspecified abdominal pain (principal); Z90.49 Acquired absence of other specified parts of digestive tract

== ENCOUNTER 2020-12-21 11:26 | Emergency (ER) | payer OTHER ==
[~2020-12-21] VITALS: Ht 154.9 cm; Wt 81.6 kg
[2020-12-21 12:42] LABS: BILIRUBIN Negative (Negative); BLOOD Negative (Negative); CLARITY Clear (Clear); COLOR Yellow (Yellow); GLUCOSE Negative (Negative); KETONE Negative (Negative); LEUKO ESTERASE Negative (Negative); NITRITE Negative (Negative); PH 6.5 (4.5-8.0); UROBILINOGEN 0.2 E.U./dl (0.0-1.0)
[2020-12-21 12:50] LABS: BASO # 0.1 10*3/uL (0.0-0.1); BASO % 0.7 % (0.0-1.0); EOS # 0.7 10*3/uL (0.0-0.4); EOS % 8.5 % (1.0-4.0); LYMPH # 2.9 10*3/uL (1.3-4.4); LYMPH % 34.9 % (27.0-41.0); MEAN CELL VOLUME 82.8 fl (81.0-99.0); MEAN CORPUSCULAR HGB 25.5 pg (27.0-31.0); MEAN CORPUSCULAR HGB CONC 30.8 g/dl (33.0-37.0); MEAN PLATELET VOLUME 10.9 fl (9.6-12.3); MONO # 0.5 10*3/uL (0.1-1.0); MONO % 6.3 % (3.0-9.0); NEUT # 4.1 10*3/uL (2.3-7.9); NEUT % 49.5 % (47.0-73.0); PLATELET COUNT AUTOMATED 389 10*3/uL (130-400); RED BLOOD COUNT 4.59 10*6/uL (4.10-5.10); RED CELL DISTRI WIDTH 17.2 % (0-14.5); WHITE BLOOD COUNT 8.4 10*3/uL (4.8-10.8)
[2020-12-21 13:16] LABS: BACTERIA 2+
[2020-12-21 14:03] LABS: ALBUMIN 3.6 gm/dl (3.1-4.5); ALKALINE PHOSPHATASE 75 U/L (45-117); BUN 8 mg/dl (7-24); CHLORIDE 110 mmol/L (98-107); CREATININE 0.64 mg/dL (0.55-1.02); LIPASE 94 U/L (73-393); POTASSIUM 4.3 mmol/L (3.5-5.1); SGOT/AST 15 IU/L (3-35); SGPT/ALT 17 U/L (12-78); SODIUM 139 mmol/L (136-145); TOTAL PROTEIN 7.2 gm/dL (6.4-8.2)
[2020-12-21] MEDS ORDERED: NEXIUM40 MG PO (15:25)
== END 2020-12-21 15:41 | disposition home or self-care (01) ==
LOC: ED 11:26
PROVIDERS: Physician Assistant
DX: K29.70 Gastritis, unspecified, without bleeding (principal); R11.2 Nausea with vomiting, unspecified; Z88.0 Allergy status to penicillin; Z88.1 Allergy status to other antibiotic agents

== ENCOUNTER 2021-09-16 20:12 | Emergency (ER) | payer OTHER ==
[~2021-09-16] VITALS: Ht 157.4 cm; Wt 88.5 kg
[~2021-09-16 20:12] MED LIST changes: +NEXIUM40 MG PO
[2021-09-16] MEDS ORDERED: FLUVOXAMINE100 MG PO (20:25)
[2021-09-16] MEDS ORDERED: HYDROXYZINE PAM50 MG PO (20:26)
[2021-09-16 20:57] LABS: BASO # 0.1 10*3/uL (0.0-0.1); BASO % 0.5 % (0.0-1.0); EOS # 0.7 10*3/uL (0.0-0.4); HEMATOCRIT 37.1 % (37.0-47.0); LYMPH # 3.4 10*3/uL (1.3-4.4); LYMPH % 36.6 % (27.0-41.0); MEAN CORPUSCULAR HGB 25.2 pg (27.0-31.0); MEAN CORPUSCULAR HGB CONC 31.5 g/dl (33.0-37.0); MEAN PLATELET VOLUME 9.7 fl (9.6-12.3); MONO # 0.5 10*3/uL (0.1-1.0); MONO % 5.7 % (3.0-9.0); NEUT # 4.6 10*3/uL (2.3-7.9); NEUT % 50.1 % (47.0-73.0); PLATELET COUNT AUTOMATED 404 10*3/uL (130-400); RED BLOOD COUNT 4.64 10*6/uL (4.10-5.10); RED CELL DISTRI WIDTH 17.2 % (0-14.5); WHITE BLOOD COUNT 9.2 10*3/uL (4.8-10.8)
[2021-09-16 21:12] LABS: ALKALINE PHOSPHATASE 97 U/L (45-117); BUN 5 mg/dl (7-24); CHLORIDE 113 mmol/L (98-107); CREATININE 0.87 mg/dL (0.55-1.02); LIPASE 141 U/L (73-393); POTASSIUM 3.8 mmol/L (3.5-5.1); SGOT/AST 11 IU/L (3-35); SGPT/ALT 15 U/L (12-78); SODIUM 143 mmol/L (136-145); TOTAL PROTEIN 6.9 gm/dL (6.4-8.2)
[2021-09-16 22:18] LABS: BILIRUBIN Negative (Negative); BLOOD 3+ (Negative); CLARITY Clear (Clear); COLOR Yellow (Yellow); GLUCOSE Negative (Negative); KETONE Trace (Negative); LEUKO ESTERASE Negative (Negative); NITRITE Negative (Negative); SPECIFIC GRAVITY >= 1.030 (1.001-1.030)
[2021-09-16] MEDS ORDERED: ZOFRAN4 MG PO (22:21)
[2021-09-16 22:27] LABS: BACTERIA 1+; MUCOUS 2+
== END 2021-09-16 22:51 | disposition home or self-care (01) ==
LOC: ED 20:12
PROVIDERS: Nurse Practitioner Family
DX: A08.4 Viral intestinal infection, unspecified (principal); Z20.822 Contact with and (suspected) exposure to COVID-19; Z88.0 Allergy status to penicillin; Z88.1 Allergy status to other antibiotic agents; Z79.899 Other long term (current) drug therapy; Z98.890 Other specified postprocedural states

== ENCOUNTER → 2021-10-02 | Outpatient (CLI) | payer OTHER ==
[~2021-10-02] MED LIST changes: +FLUVOXAMINE100 MG PO; +HYDROXYZINE PAM50 MG PO
== END | disposition home or self-care (01) ==
LOC: CT 07:52
PROVIDERS: ATTEND Family Medicine
DX: R10.84 Generalized abdominal pain (principal)

== ENCOUNTER 2022-01-15 18:26 | Emergency (ER) | payer OTHER ==
[~2022-01-15] VITALS: Ht 154.9 cm; Wt 94.3 kg
[2022-01-15 19:43] LABS: BASO % 0.4 % (0.0-1.0); EOS # 0.2 10*3/uL (0.0-0.4); EOS % 2.4 % (1.0-4.0); LYMPH # 2.7 10*3/uL (1.3-4.4); MEAN CELL VOLUME 79.6 fl (81.0-99.0); MEAN CORPUSCULAR HGB 26.3 pg (27.0-31.0); MEAN CORPUSCULAR HGB CONC 33.1 g/dl (33.0-37.0); MEAN PLATELET VOLUME 11.3 fl (9.6-12.3); MONO # 0.7 10*3/uL (0.1-1.0); MONO % 7.9 % (3.0-9.0); NEUT # 5.4 10*3/uL (2.3-7.9); NEUT % 59.1 % (47.0-73.0); PLATELET COUNT AUTOMATED 352 10*3/uL (130-400); RED BLOOD COUNT 4.52 10*6/uL (4.10-5.10); RED CELL DISTRI WIDTH 16.6 % (0-14.5); WHITE BLOOD COUNT 9.1 10*3/uL (4.8-10.8)
[2022-01-15 19:48] LABS: BILIRUBIN Negative (Negative); BLOOD Negative (Negative); CLARITY Clear (Clear); COLOR Yellow (Yellow); GLUCOSE Negative (Negative); KETONE Trace (Negative); LEUKO ESTERASE Negative (Negative); NITRITE Negative (Negative); PH 5.5 (4.5-8.0); SPECIFIC GRAVITY 1.015 (1.001-1.030)
[2022-01-15 20:01] LABS: BUN 5 mg/dl (7-24); CHLORIDE 107 mmol/L (98-107); CREATININE 0.54 mg/dL (0.55-1.02); LIPASE 116 U/L (73-393); POTASSIUM 3.9 mmol/L (3.5-5.1); SGOT/AST 91 IU/L (3-35); SGPT/ALT 103 U/L (12-78); SODIUM 137 mmol/L (136-145); TOTAL PROTEIN 7.2 gm/dL (6.4-8.2)
[2022-01-15 20:02] LABS: ALKALINE PHOSPHATASE 97 U/L (45-117)
[2022-01-15 20:12] LABS: BACTERIA 2+; EPITHELIAL CELLS 41-50
[2022-01-15] MEDS ORDERED: PROMETHAZINE25 M1 PO (22:18)
== END 2022-01-15 22:26 | disposition home or self-care (01) ==
LOC: ED 18:26
PROVIDERS: Emergency Medicine
DX: O21.8 Other vomiting complicating pregnancy (principal); Z79.899 Other long term (current) drug therapy; Z88.0 Allergy status to penicillin; Z88.1 Allergy status to other antibiotic agents; Z3A.10 10 weeks gestation of pregnancy

== ENCOUNTER 2022-05-20 10:59 | Emergency (ER) | payer OTHER ==
[~2022-05-20] VITALS: Ht 154.9 cm; Wt 97.5 kg
[~2022-05-20 10:59] MED LIST changes: +PROMETHAZINE25 M1 PO
== END 2022-05-20 12:01 | disposition left against medical advice (07) ==
LOC: ED 10:59
DX: Z53.21 Procedure and treatment not carried out due to patient leaving prior to being seen by health care provider (principal)

== ENCOUNTER → 2023-04-21 | Day surgery (SDC) | payer MEDICAID ==
[~2023-04-21] VITALS: Ht 154.9 cm; Wt 95.3 kg
[~2023-04-21] MED LIST changes: +BUSPAR5 MG PO
[2023-04-21 08:23] VITALS: BP 117/71
[2023-04-21 10:18] VITALS: BP 119/57
[2023-04-21 10:33] VITALS: BP 90/63
[2023-04-21 10:48] VITALS: BP 108/59
[2023-04-21 11:03] VITALS: BP 113/59
[2023-04-21 11:11] VITALS: BP 104/52
== END | disposition home or self-care (01) ==
LOC: SDC 04-17 14:00
PROVIDERS: ATTEND Obstetrics & Gynecology
DX: Z30.2 Encounter for sterilization (principal); F41.9 Anxiety disorder, unspecified; F31.9 Bipolar disorder, unspecified; F43.10 Post-traumatic stress disorder, unspecified; D64.9 Anemia, unspecified; F17.210 Nicotine dependence, cigarettes, uncomplicated; Z90.49 Acquired absence of other specified parts of digestive tract; Z90.89 Acquired absence of other organs; Z98.818 Other dental procedure status; Z98.891 History of uterine scar from previous surgery; Z98.890 Other specified postprocedural states; Z79.899 Other long term (current) drug therapy; Z88.0 Allergy status to penicillin; Z88.1 Allergy status to other antibiotic agents

== ENCOUNTER 2023-11-07 08:45 | Emergency (ER) | payer MEDICAID ==
[~2023-11-07] VITALS: Ht 154.9 cm; Wt 83.9 kg
[2023-11-07] MEDS ORDERED: LEVOFLOXACIN 750 MG TAB PO ONE (08:55)
[2023-11-07] MEDS ORDERED: LEVOFLOXACIN750 M2 PO (09:00)
== END 2023-11-07 09:05 | disposition home or self-care (01) ==
LOC: ED 08:45
DX: H66.91 Otitis media, unspecified, right ear (principal); J02.9 Acute pharyngitis, unspecified; F32.A Depression, unspecified; Z88.0 Allergy status to penicillin; Z88.1 Allergy status to other antibiotic agents; Z98.890 Other specified postprocedural states; Z90.49 Acquired absence of other specified parts of digestive tract

== ENCOUNTER 2024-10-29 09:50 | Emergency (ER) | payer MEDICAID ==
[~2024-10-29] VITALS: Ht 154.9 cm; Wt 81.6 kg
[~2024-10-29 09:50] MED LIST changes: +LEVOFLOXACIN750 M2 PO
[2024-10-29] MEDS ORDERED: Tdap Vaccine 0.5 ML SYR (Adult Vaccine) IM ONE (10:10)
[2024-10-29] MEDS ORDERED: IBUPROFEN 400 MG TAB PO ONE (10:35)
[2024-10-29] MEDS ORDERED: SEPTDS PO (10:38)
== END 2024-10-29 10:33 | disposition home or self-care (01) ==
LOC: ED 09:50
DX: L02.211 Cutaneous abscess of abdominal wall (principal); Z88.0 Allergy status to penicillin; Z88.1 Allergy status to other antibiotic agents; Z90.49 Acquired absence of other specified parts of digestive tract; Z98.890 Other specified postprocedural states

== ENCOUNTER → 2024-11-02 | Outpatient (CLI) | payer MEDICAID | LOC: WOUNDCARE 09:52 | PROVIDERS: ATTEND Nurse Practitioner Family | DX: L02.211 Cutaneous abscess of abdominal wall (principal); A49.8 Other bacterial infections of unspecified site; F17.210 Nicotine dependence, cigarettes, uncomplicated; Z90.49 Acquired absence of other specified parts of digestive tract; Z98.890 Other specified postprocedural states; Z79.899 Other long term (current) drug therapy ==